=== PATIENT | male | born 1980 | race American Indian/Alaskan Native ===

== ENCOUNTER 2016-11-16 16:45 | Emergency (ER) | payer OTHER ==
[2016-11-16 17:02] VITALS: TEMP 98.9
--- NOTE | 2016-11-16 17:34 | ED PDOC ---
Arrival/HPI - General Chief Complaint: Upper Extremity Problem/Injury Time Seen by Provider: 11/16/16 17:02 Historian: Patient - History of Present Illness Narrative History of Present Illness (Text): 11/16/16 17:31 36yo male who present with complaint of left shoulder pain x 5days. Notes that pain started when another player hit his left shoulder, while playing basketball. States he has been taking Tylenol without relieve. Pain is worse with abduction and palpation. Denies focal weakness, paresthesia, swelling, any other complaint. Past Medical History - Provider Review Nursing Documentation Reviewed: Yes - Infectious Disease Hx of Infectious Diseases: None - Psychiatric Hx Substance Use: No - Surgical History Hx Orthopedic Surgery: Yes - Anesthesia Hx Anesthesia: No Family/Social History - Physician Review Nursing Documentation Reviewed: Yes Family/Social History: Unknown Family HX Smoking Status: Current Some Days Smoker Hx Alcohol Use: Yes Frequency of alcohol use: Socially Hx Substance Use: No Allergies/Home Meds Allergies/Adverse Reactions: Allergies No Known Allergies Allergy (Verified 11/16/16 17:02) Review of Systems - Physician Review All systems were reviewed & negative as marked: Yes - Review of Systems Constitutional: Normal Eyes: Normal ENT: Normal Respiratory: Normal Cardiovascular: Normal Gastrointestinal: Normal Genitourinary Male: Normal Musculoskeletal: Arthralgias (LEft shoulder pain) Skin: Normal Neurological: Normal Endocrine: Normal Hemo/Lymphatic: Normal Psychiatric: Normal Physical Exam Vital Signs Reviewed: Yes Vital Signs Temp Pulse Resp BP Pulse Ox 11/16/16 16:57 98.9 F 65 20 109/62 97 Temperature: Afebrile Blood Pressure: Normal Pulse: Regular Respiratory Rate: Normal Appearance: Positive for: Well-Appearing, Non-Toxic, Comfortable Pain Distress: None Mental Status: Positive for: Alert and Oriented X 3 - Systems Exam Head: Present: Atraumatic, Normocephalic Pupils: Present: PERRL Extroacular Muscles: Present: EOMI Conjunctiva: Present: Normal Mouth: Present: Moist Mucous Membranes Neck: Present: Normal Range of Motion Respiratory/Chest: Present: Clear to Auscultation, Good Air Exchange. No: Respiratory Distress, Accessory Muscle Use Cardiovascular: Present: Regular Rate and Rhythm, Normal S1, S2. No: Murmurs Abdomen: Present: Normal Bowel Sounds. No: Tenderness, Distention, Peritoneal Signs Back: Present: Normal Inspection Upper Extremity: Present: Normal ROM (with pain on full abdction of arm), NORMAL PULSES, Tenderness (Left proximal shoulder), Neurovascularly Intact, Capillary Refill < 2s, Other (Strenght 5/5). No: Cyanosis, Edema, Swelling, Erythema, Temperature Abnormalties, Deformity Lower Extremity: Present: Normal Inspection. No: Edema Neurological: Present: GCS=15, CN II-XII Intact, Speech Normal Skin: Present: Warm, Dry, Normal Color. No: Rashes Psychiatric: Present: Alert, Oriented x 3, Normal Insight, Normal Concentration Medical Decision Making ED Course and Treatment: 11/16/16 17:43 Left shoulder xray - No acute finding PT have FROM. NVI and strength 5/5. Result was DW the pt. He was DC home with Naprosyn and referred to ortho for further outpt work up. - RAD Interpretation Radiology Orders: 11/16/16 17:03 SHOULDER LEFT [RAD] Stat - Medication Orders Current Medication Orders: Discontinued Medications Ketorolac Tromethamine (Toradol) 60 mg IM STAT STA Stop: 11/16/16 17:31 Disposition/Present on Arrival - Present on Arrival Any Indicators Present on Arrival: No History of DVT/PE: No History of Uncontrolled Diabetes: No Urinary Catheter: No History of Decub. Ulcer: No History Surgical Site Infection Following: None - Disposition Have Diagnosis and Disposition been Completed?: Yes Diagnosis: Shoulder contusion Disposition: HOME/ ROUTINE Disposition Time: 17:45 Patient Plan: Discharge Patient Problems: Current Active Problems Problem Status Onset Shoulder contusion Acute Condition: STABLE Discharge Instructions (ExitCare): Shoulder Sprain (ED) Additional Instructions: Follow up with your Doctor/Orthopedist Return to ED for any new symptoms Prescriptions: Naproxen [Naprosyn] 500 mg PO BID #20 tab Referrals: Danielito Zapata DO [Staff Provider] - Follow up with primary
[2016-11-16 17:40] VITALS: BP 111/65; PULSE 63; RESP 18; O2SAT 98
[2016-11-16] MEDS ORDERED: Naproxen 550 mg Tab PO STA (17:42)
--- NOTE | 2016-11-17 08:55 | RAD ---
PROCEDURE: Radiographs of the Left Shoulder HISTORY: shoulder pain s/p trauma COMPARISON: No prior. FINDINGS: BONES: Normal. No fracture. JOINTS: Normal. Glenohumeral and acromioclavicular joints preserved. No osteoarthritis. SOFT TISSUES: Normal. OTHER FINDINGS: None. IMPRESSION: Normal radiographs of the left shoulder.
== END 2016-11-16 18:10 | disposition home or self-care (01) ==
LOC: ED 16:45 → MERGE 16:45 → ED 18:10
DX: S40.012A Contusion of left shoulder, initial encounter (principal); W50.0XXA Accidental hit or strike by another person, initial encounter; Y93.67 Activity, basketball; Y92.39 Other specified sports and athletic area as the place of occurrence of the external cause